=== PATIENT | male | born 1990 | race Hispanic/Latino ===

== ENCOUNTER 2019-07-30 08:24 | Emergency (ER) | payer SELFPAY ==
--- NOTE | 2019-07-30 09:07 | RAD ---
XR Chest 1 View Portable HISTORY: Left rib injury. COMPARISON: None. FINDINGS: Heart size and mediastinum are within normal limits for portable technique. Some minimal li near atelectasis in the lung bases. No pneumothorax identified IMPRESSION: Minimal linear atelectasis in the lung bases.
== END 2019-07-30 09:15 | disposition home or self-care (01) ==
LOC: ERS 08:24
DX: S20.212A Contusion of left front wall of thorax, initial encounter (principal); Z87.891 Personal history of nicotine dependence; W18.30XA Fall on same level, unspecified, initial encounter
CPT/HCPCS: 71045

== ENCOUNTER 2020-11-04 20:14 | Emergency (ER) | payer SELFPAY ==
--- NOTE | 2020-11-04 20:47 | CT ---
EXAM: CT face without contrast HISTORY: Right facial trauma after fall COMPARISON: None TECHNIQUE: Multiple contiguous axial images were obtained and a CT of the face without contrast. Sagi ttal and coronal reformats were performed. FINDINGS: There is a fracture of the angle of the right mandible. No other mandibular or facial fract ures are seen. The temporomandibular joints are symmetric without evidence of subluxation. Right facial soft tissue swelling is seen. The globes and retrobulbar soft tissues are unremarkable. The visualized paranasal sinuses are well aerated without evidence of opacification. The mastoid air cells are well aerated. Visualized intracranial structures are unremarkable. IMPRESSION: Right mandibular fracture
== END 2020-11-04 21:36 | disposition home or self-care (01) ==
LOC: ERS 20:14
DX: S02.651A Fracture of angle of right mandible, initial encounter for closed fracture (principal); Z87.891 Personal history of nicotine dependence; W01.0XXA Fall on same level from slipping, tripping and stumbling without subsequent striking against object, initial encounter
CPT/HCPCS: 70486

== ENCOUNTER 2020-11-05 13:06 | Day surgery (SDC) | payer SELFPAY ==
[~2020-11-05 13:06] MED LIST: Dexamethasone 20 MG/5 ML VIAL ONE; Glycopyrrolate 0.2 MG/ML 5 ML SYRINGE ONE; Lidocaine 1% PF 5 ML VIAL ONE; Ondansetron PF 4 MG/2 ML Vial ONE; PROPOFOL 200 MG/20 ML VIAL ONE; Rocuronium Bromide 10 MG/ML (10ML VIAL) ONE
[2020-11-05] MEDS ORDERED: Midazolam HCl 2 mg/2 ml Vial ONE (13:17)
[2020-11-05] MEDS ORDERED: Fentanyl 100 MCG/2 ML VIAL ONE ×3 (13:17→17:32)
[2020-11-05] MEDS ORDERED: Ketamine 50 MG/ML (10ML VIAL) ONE (13:18)
[2020-11-05] MEDS ORDERED: AFRIN NASAL MIST 15 ML BOT ONE (13:19)
[2020-11-05] MEDS ORDERED: Chlorhexidine Gluconate 15 ML UDCUP SSP SCH (13:30)
[2020-11-05] MEDS ORDERED: CEFAZOLIN 2 GM in Premix Bag 1 BAG IVPB SCH (13:30)
[2020-11-05] MEDS ORDERED: Hydrocortisone 1% Cream 30 GM TUBE ONE (13:31)
[2020-11-05] MEDS ORDERED: Chlorhexidine Gluconate 15 ML UDCUP SSP ONE (13:31)
[2020-11-05] MEDS ORDERED: Lidocaine 1% w/Epinephrine 1:100K 20 ML VIAL ONE (13:31)
[2020-11-05] MEDS ORDERED: Labetalol HCl 100 MG/20 ML VIAL ONE (17:16)
[2020-11-05] MEDS ORDERED: Hydrocodone-Acetamin 15 ML UDCUP ONE (17:39)
[2020-11-05] MEDS ORDERED: Ketorolac Tromethamine 30 MG/ML VIAL ONE (17:39)
--- NOTE | 2020-11-05 19:29 | OP ---
DATE OF PROCEDURE: 11/05/2020 PREOPERATIVE DIAGNOSES: Open mandible fracture, right mandibular body PROCEDURES PERFORMED: 1. Surgical removal of teeth 1 and 32. 2. Open reduction and internal fixation of mandibular body fracture as well as maxillomandibular fixation. ESTIMATED BLOOD LOSS: 100 mL. ANESTHESIA: General endotracheal anesthesia through nasal tube. COMPLICATIONS: None. SPECIMENS: None. DRAINS: None. DISPOSITION: The patient was stable, extubated, and transferred to postop recovery unit. The patient is to follow up in my clinic in 1 week. He is to be on a full liquid diet. Arch bars are to be with patient at all times. The patient will be placed on clindamycin 300 mg q.i.d. for 1 week, this will be in liquid form; Peridex 15 mL swish and spit t.i.d. for 1 week; and liquid pain medicine Disney 7.5/325 per 15 mL p.o. q.6 hours. I will dispense 300 mL not p.r.n. BRIEF PATIENT HISTORY AND PROCEDURE IN DETAIL: This is a 30-year-old male with right mandibular body fracture approximately 4 days old, taken to operating room, prepped and draped in sterile fashion. Teeth were brushed with Peridex after placement of a throat pack. Local anesthetic infiltration, maxilla and mandible. Arch bars and wires were placed in the maxilla and mandible. Tooth number #1 was then removed with elevator and forceps as well as tooth #32 which was through the fracture site. A sulcular incision with vertical release medial to #32 was made as well as a hockey-stick incision over bone distal of #32, full-thickness mucoperiosteal flap to the buccal exposing the fracture site. Fracture site was cleaned with curette, mobilized, and irrigated with normal saline. The patient was put in occlusion with excellent reduction of the fracture. At this point, a monocortical with 6 mm screws was placed near the superior border with great alignment of the fracture. The patient was released from . Throat pack was removed. Site was irrigated thoroughly, closure with 4-0 chromic gut of the vestibular incision. Primary closure was obtained. Maxillomandibular fixation was then placed back using 24-gauge wires. The patient tolerated the procedure well. Job ID: [id number]
== END 2020-11-05 19:00 | disposition home or self-care (01) ==
LOC: SDC 13:06
PROVIDERS: ATTEND Dentist Oral and Maxillofacial Surgery
PROC: 0NST04Z Reposition Right Mandible with Internal Fixation Device, Open Approach (ICD-10-PCS; principal; 2020-11-05)
DX: S02.601A Fracture of unspecified part of body of right mandible, initial encounter for closed fracture (principal)
CPT/HCPCS: C1713; J0690; J1885; J2250; J3010